=== PATIENT | female | born 1950 | race Caucasian/White ===

== ENCOUNTER → 2024-07-03 13:21 | Outpatient (REF) | payer MEDICARE, OTHER, SELFPAY | LOC: WDC 13:21 | PROVIDERS: ATTENDING PHYSICIAN Family Medicine | DX: Z12.31 Encounter for screening mammogram for malignant neoplasm of breast (principal) | CPT/HCPCS: 77063; 77067 ==

== ENCOUNTER → 2024-08-09 07:05 | Outpatient (REF) | payer MEDICARE, OTHER, SELFPAY | LOC: MRI 3T 07:05 | PROVIDERS: ATTENDING PHYSICIAN Physician Assistant | DX: M25.562 Pain in left knee (principal) | CPT/HCPCS: 73721 ==

== ENCOUNTER 2025-02-18 05:57 | Day surgery (SDC) | payer MEDICARE, OTHER, SELFPAY ==
[2025-01-22 13:45] LABS: Hematocrit 39.5 % (37.0-47.0); Hemoglobin 13.4 g/dL (12.0-16.0); Mean Corp Hgb Conc. 33.9 g/dL (33.0-37.0); Mean Corpuscular Hgb 31.4 pg (27.0-31.0); Mean Corpuscular Volume 92.5 fL (81.0-99.0); Mean Platelet Volume 10.7 fL (7.4-10.4); Platelet Count 155 10^3/uL (130-400); Red Blood Cell Count 4.27 10^6/uL (4.20-5.40); Red Cell Dist. Width 11.9 % (11.5-14.5); White Blood Cell Count 5.7 10^3/uL (4.8-10.8)
[2025-01-22 14:15] LABS: Glycohemoglobin (HgbA1c) 5.3 % (4.0-5.6)
[2025-01-22 14:26] LABS: ALT (SGPT) 22 U/L (0-35); AST (SGOT) 28 U/L (14-36); Albumin 4.5 g/dl (3.5-5.0); Alkaline Phosphatase 68 U/L (38-126); Blood Urea Nitrogen 22 mg/dl (7-17); Carbon Dioxide 28 mmol/L (22-30); Chloride 104 mmol/L (98-107); Glucose 70 mg/dl (70-99); Potassium 4.6 mmol/L (3.5-5.1); Sodium 141 mmol/L (135-145); Total Bilirubin 0.8 mg/dl (0.2-1.3); Total Protein 6.8 g/dl (6.3-8.2); eGFR > 60.00
[2025-01-23 14:00] VITALS: BMI 27.0
--- NOTE | 2025-02-04 11:51 | VNURNOTE ---
Patient is scheduled for an elective L TKA on 02/18 - she is a same day patient with Dr Ro. Spoke with patient prior to surgery. Introduced role of [facility] Liaison. Patient reports that she lives with her spouse in a MULTI story home.
There are 2 steps to enter and 15 steps to the second floor.
There is a powder room on the data entry email processor. She has a rolling walker.
Her spouse has had VN services after his prior THR and was same day surgery in November.
PCP is Dr Ever Mccullough.
Discussed [facility] joint protocol and post surgical plans.
Reviewed that she will have VN services initially and will then start outpatient PT on 02/21.
Patient selects [facility] for her home care needs and [facility]. Scheduled for 02/21.
Patient is in agreement with plan and states that her spouse will be home with her. Advised to bring RW with her day of surgery. Referral placed in [facility].
Plan: [facility] per [facility] joint protocol on 02/18 then outpt PT on 02/21
[2025-02-18] VITALS (10 sets, daily range): BP systolic 110–150; BP diastolic 50–81; BMI 27.0
[2025-02-18] MEDS: NORMOSOL-R/PLASMALYTE-A 1000 IV (06:39)
[2025-02-18] MEDS: MOBIC 15 MG PO (06:39)
[2025-02-18] MEDS: TYLENOL 650 MG PO (06:39)
--- NOTE | 2025-02-18 07:03 | W.DS.TRANS ---
DC Summary - Clay Miller
-
Discharge Instructions:
Sleep Apnea Risk Low
Discharge Diagnosis/Procedures L TKA 02/18/25
Diet As tolerated
Activity With Walker
Additional Activity Adequate hydration, minimize Oxy and wear TEDs
stockings to prevent low blood pressure/
dizziness
Driving Restrictions No driving
Bathing Restrictions OK to Shower
Other Services PT
Instructions:
Stand-Alone Forms: SDS Total Hip and Knee D/C
Changes to Home Medications: Yes
Discharge Medications:
DC Medications w/original date entered in [employer]
ascorbic acid (vitamin C) 500 mg tablet (Vitamin C) 500 mg PO DAILY 10/05/12
multivitamin with folic acid 400 mcg tablet (Tab-A-Kavitha) 1 tab PO DAILY 10/05/12
pimecrolimus 1 % topical cream (Elidel) 1 applic topical DAILY 10/05/12
Neuriva Original 1 dose PO DAILY 01/21/25
duloxetine 60 mg capsule,delayed release 60 mg PO DAILY 01/21/25
estradiol 0.01% (0.1 mg/gram) vaginal cream 1 g vaginal QWEEK 01/21/25
levothyroxine 100 mcg tablet 100 mcg PO DAILY 01/21/25
metronidazole 1 % topical gel (Metrogel) 1 applic topical DAILY 01/21/25
mirabegron 50 mg tablet,extended release 24 hr (Myrbetriq) 50 mg PO DAILY 01/21/25
rosuvastatin 10 mg tablet 10 mg PO QPM 01/21/25
dexamethasone 4 mg tablet 4 mg PO BID inflammation #6 tabs 01/22/25
famotidine 20 mg tablet 20 mg PO HS GI prophylaxis #30 tabs 01/22/25
gabapentin 300 mg capsule 300 mg PO HS sleep/pain #10 caps 01/22/25
hydrocodone 5 mg-acetaminophen 325 mg tablet 1 tab PO Q6H PRN 1 tab moderate pain or 2 if severe #30 tabs 01/22/25
meloxicam 15 mg tablet 15 mg PO DAILY anti-inflammatory #14 tabs 01/22/25
mupirocin 2 % topical ointment 1 applic topical BID infection prevention #1 tube 01/22/25
ondansetron 4 mg disintegrating tablet 4 mg PO Q6H PRN n/v #20 tabs 01/22/25
acetaminophen 650 mg tablet,extended release (Tylenol Arthritis Pain) 1,300 mg (2 x 650 mg) PO TID #0 tabs 02/18/25
aspirin 325 mg tablet 325 mg PO DAILY blood clot prevention #1 tab 02/18/25
docusate sodium 100 mg capsule (Colace) 100 mg PO BID stool softner #1 cap 02/18/25
irbesartan 75 mg tablet 75 mg PO DAILY #0 tabs 02/18/25
magnesium hydroxide 400 mg/5 mL oral suspension (Milk of Magnesia) 30 ml PO HS PRN constipation #1 mL 02/18/25
sennosides 8.6 mg tablet (Senokot) 17.2 mg (2 x 8.6 mg) PO BID laxative #2 tabs 02/18/25
Home Medication Changes
dexamethasone 4 mg tablet 4 mg PO BID inflammation #6 tabs 01/22/25
famotidine 20 mg tablet 20 mg PO HS GI prophylaxis #30 tabs 01/22/25
gabapentin 300 mg capsule 300 mg PO HS sleep/pain #10 caps 01/22/25
hydrocodone 5 mg-acetaminophen 325 mg tablet 1 tab PO Q6H PRN 1 tab moderate pain or 2 if severe #30 tabs 01/22/25
meloxicam 15 mg tablet 15 mg PO DAILY anti-inflammatory #14 tabs 01/22/25
mupirocin 2 % topical ointment 1 applic topical BID infection prevention #1 tube 01/22/25
ondansetron 4 mg disintegrating tablet 4 mg PO Q6H PRN n/v #20 tabs 01/22/25
acetaminophen 650 mg tablet,extended release (Tylenol Arthritis Pain) 1,300 mg (2 x 650 mg) PO TID #0 tabs 02/18/25
aspirin 325 mg tablet 325 mg PO DAILY blood clot prevention #1 tab 02/18/25
docusate sodium 100 mg capsule (Colace) 100 mg PO BID stool softner #1 cap 02/18/25
irbesartan 75 mg tablet 75 mg PO DAILY #0 tabs 02/18/25
magnesium hydroxide 400 mg/5 mL oral suspension (Milk of Magnesia) 30 ml PO HS PRN constipation #1 mL 02/18/25
sennosides 8.6 mg tablet (Senokot) 17.2 mg (2 x 8.6 mg) PO BID laxative #2 tabs 02/18/25
Pending Results: No
[2025-02-18] MEDS: ANCEF 5 IV (11:29)
== END 2025-02-18 12:02 | disposition home or self-care (01) ==
LOC: SDS 05:57
PROVIDERS: ATTENDING PHYSICIAN Specialist; FAMILY PHYSICIAN Family Medicine
DX: M17.12 Unilateral primary osteoarthritis, left knee (principal)
CPT/HCPCS: 27447; C1713; C1776; 36415; 73560; 80053; 83036; 85027; 87070; 93005; 97162

== ENCOUNTER 2025-03-15 10:54 | Outpatient (RCR) | payer MEDICARE, OTHER, SELFPAY | END 2025-03-15 23:59 | disposition home or self-care (01) | LOC: RPT 10:54 | PROVIDERS: ATTENDING PHYSICIAN Specialist; FAMILY PHYSICIAN Family Medicine | DX: Z47.1 Aftercare following joint replacement surgery (principal); R26.2 Difficulty in walking, not elsewhere classified; Z73.6 Limitation of activities due to disability; M62.81 Muscle weakness (generalized); R26.89 Other abnormalities of gait and mobility; Z96.652 Presence of left artificial knee joint | CPT/HCPCS: 97010; 97110; 97112; 97161 ==

== ENCOUNTER 2025-04-11 11:53 | Outpatient (RCR) | payer MEDICARE, OTHER, SELFPAY | END 2025-04-11 23:59 | disposition home or self-care (01) | LOC: RPT 11:53 | PROVIDERS: ATTENDING PHYSICIAN Specialist; FAMILY PHYSICIAN Family Medicine | DX: Z47.1 Aftercare following joint replacement surgery (principal); R26.2 Difficulty in walking, not elsewhere classified; Z73.6 Limitation of activities due to disability; M62.81 Muscle weakness (generalized); R26.89 Other abnormalities of gait and mobility; Z96.652 Presence of left artificial knee joint | CPT/HCPCS: 97010; 97110; 97112 ==

== ENCOUNTER 2025-05-16 10:04 | Outpatient (RCR) | payer MEDICARE, OTHER, SELFPAY | END 2025-05-16 23:59 | disposition home or self-care (01) | LOC: RPT 10:04 | PROVIDERS: ATTENDING PHYSICIAN Specialist; FAMILY PHYSICIAN Family Medicine | DX: Z47.1 Aftercare following joint replacement surgery (principal); R26.2 Difficulty in walking, not elsewhere classified; Z73.6 Limitation of activities due to disability; M62.81 Muscle weakness (generalized); R26.89 Other abnormalities of gait and mobility; Z96.652 Presence of left artificial knee joint | CPT/HCPCS: 97010; 97110; 97112; 97530 ==

== ENCOUNTER → 2025-06-19 12:51 | Outpatient (REF) | payer MEDICARE, OTHER, SELFPAY | LOC: WDC 12:51 | PROVIDERS: ATTENDING PHYSICIAN Family Medicine | DX: Z12.31 Encounter for screening mammogram for malignant neoplasm of breast (principal) | CPT/HCPCS: 77063; 77067 ==

== ENCOUNTER → 2025-08-14 11:19 | Outpatient (REF) | payer MEDICARE, OTHER, SELFPAY | LOC: RAD 11:19 | PROVIDERS: ATTENDING PHYSICIAN Internal Medicine Endocrinology, Diabetes & Metabolism; FAMILY PHYSICIAN Family Medicine | DX: M81.0 Age-related osteoporosis without current pathological fracture (principal) | CPT/HCPCS: 77080 ==